=== PATIENT | female | born 1975 | race Caucasian/White ===

== ENCOUNTER 2017-07-07 09:41 | Emergency (ER) | END 2017-07-07 12:00 | disposition left against medical advice (07) ==

== ENCOUNTER 2017-09-03 13:21 | Emergency (ER) | END 2017-09-03 17:50 | disposition home or self-care (01) ==

== ENCOUNTER 2017-10-23 07:41 | Emergency (ER) | END 2017-10-23 11:01 | disposition home or self-care (01) ==

== ENCOUNTER 2017-11-03 18:41 | Emergency (ER) | END 2017-11-03 19:50 | disposition home or self-care (01) ==

== ENCOUNTER 2018-03-30 13:07 | Emergency (ER) | END 2018-03-30 16:24 | disposition left against medical advice (07) ==

== ENCOUNTER 2018-04-10 00:29 | Emergency (ER) | END 2018-04-10 02:56 | disposition home or self-care (01) ==

== ENCOUNTER 2018-04-17 02:17 | Emergency (ER) | END 2018-04-17 03:51 | disposition home or self-care (01) ==

== ENCOUNTER 2019-02-21 11:21 | Emergency (ER) | payer MEDICAID ==
[~2019-02-21] VITALS: Ht 154.9 cm; Wt 65.5 kg
[~2019-02-21 11:21] MED LIST: BACL10TA PO; CEPH-443 PO; CYCL5TAB PO; ELIM TOP; ERYT1OIN6 BOTH EYES; ERYT1OIN6 LEFT EYE; HYDR-4011 PO; HYDR-842 PO; HYDR-843 PO; IBUP-1542 PO; KETO10DR5 OP; KETO5DRO22 OP; NAPR-985 PO; POLY17PO6 PO; PRED20TA PO; SULF1TAB31 PO; ZOF8 PO
[2019-02-21 11:27] VITALS: Ht 154.9 cm; Wt 65.5 kg
[2019-02-21] MEDS ORDERED: TRIMETHOPRIM/SULFAMETHOX (DS) TAB PO ONE (12:00)
[2019-02-21] MEDS ORDERED: CEPHALEXIN 500 MG CAP PO ONE (12:00)
[2019-02-21 12:18] VITALS: BP 108/74; PULSE 68; RESP 16
== END 2019-02-21 12:29 | disposition home or self-care (01) ==
LOC: E/R 11:21
DX: H01.006 Unspecified blepharitis left eye, unspecified eyelid (principal); Z87.891 Personal history of nicotine dependence
CPT/HCPCS: Z7502; Z7610; 99283